=== PATIENT | female | born 2000 ===

== ENCOUNTER 2024-07-03 10:11 | Outpatient (AMB) | payer OTHER, SELFPAY ==
--- NOTE | 2024-07-03 10:18 | A.OFFVIS_ITS ---
Vital Signs 07/03/24 10:19 Height 5 ft 5 in Weight 167 lb 4 oz BMI 27.8 BP 118/62 Blood Pressure Location Lt brachial Position Sitting Pulse 76 Pulse Source Pulse Oximeter Pulse Oximetry (%) 98 Oxygen Delivery Method Room Air Intake Visit Reasons: RA Intake Note: Patient presents today for follow up on rheumatoid arthritis. She was last seen by Dr. Mariscal at [facility] on 07/19/22. Allergies Penicillins Allergy (Mild, Verified 07/03/24 10:22) pruritus, lip swelling HPI HPI RA: Details: She is doing well. Her last Simponi subcutaneous injection was 06/08/2024. She denies any joint swelling or stiffness. She feels like she forgets that she has arthritis sometimes. No recent infections. She continues to play basketball. She is establishing care at my practice at [facility]. She was a previous patient of mine at [facility]. [facility] Medical History (Updated 07/03/24 @ 12:55 by Carter Mariscal MD) Iron deficiency Vitamin D deficiency Hearing difficulty of both ears Eczema, dyshidrotic Juvenile idiopathic arthritis Surgical History (Updated 07/03/24 @ 10:24 by Brooklyn Baxter CMA) No pertinent past surgical history Social History (Updated 07/03/24 @ 08:52 by Brooklyn Baxter CMA) Household Members: Family Alcohol intake: never Patient Tobacco Use Status: Never used Tobacco Physical Exam Vital Signs: Last Vital Signs Pulse 76 07/03/24 10:19 BP 118/62 07/03/24 10:19 Pulse Ox 98 07/03/24 10:19 Oxygen Delivery Method Room Air 07/03/24 10:19 BMI result Body Mass Index 27.8 Const Other: General: Comfortable CVS: RRR Respiratory: clear to auscultation bilaterally. Good respiratory effort Skin: No lesions seen MSK: No tenderness of any joint. No synovitis. No dactylitis. Good range of motion of upper extremities and lower extremities. Assessment & Plan Assessment & Plan (1) Juvenile idiopathic arthritis: Comment: Controlled on Simponi subcutaneous injection monthly. She is overdue for her injection. History: Presenting with right recurrent dactylitis and TMJ arthritis. Failed Humira 11/2021-03/2022, she was on Simponi Aria 04/2022 but it was changed to subcutaneous injection as insurance covering infusion. Code(s): M08.80 - Other juvenile arthritis, unspecified site Category: Medical Plan: Labs for disease and drug monitoring on high-risk medication ordered Simponi 50 mg every 4 week subcutaneous injection prescription sent to [facility] pharmacy to process PA urgent request. In the past it was very difficult to control recurrent dactylitis failing NSAIDs, prednisone courses and intra- articular cortisone injections. Delay in initiation of treatment will result in disease flaring, unnecessary suffering and disability. Return to clinic in 3 months Requesting recent records from 2023 and MRI TMJ report from the past from [facility] Patient will call office if she starts to develop joint symptoms (2) Other bed bug exterminator (current) drug therapy: Code(s): Z79.899 - Other half-way (current) drug therapy Category: Medical Plan: See above Orders: Orders Creatinine Today Z79.60 - petroleum terminal plant operator (current) use of unspecified immunomodulators and immunosuppressants Erythrocyte Sedimentation Rate Today M08.80 - Other juvenile arthritis, unspecified site, Z79.899 - Other bed bug exterminator (current) drug therapy C Reactive Protein Today M08.80 - Other juvenile arthritis, unspecified site, Z79.899 - Other half-way (current) drug therapy Hepatitis B,C Profile Today M08.80 - Other juvenile arthritis, unspecified site, Z79.899 - Other bed bug exterminator (current) drug therapy Alanine Aminotransferase Today Z79.60 - [facility] (current) use of unspecified immunomodulators and immunosuppressants Aspartate Amino Transferase Today Z79.60 - petroleum terminal plant operator (current) use of unspecified immunomodulators and immunosuppressants Complete Blood Count Auto Diff Today Z79.60 - [facility] (current) use of unspecified immunomodulators and immunosuppressants T Spot TB Today M08.80 - Other juvenile arthritis, unspecified site, Z79.899 - Other half-way (current) drug therapy Medications: New golimumab (Simponi) PA needed. URGENT. Overdue. Continuity of treatment. 50 mg (0.5 mL) subcut Q4W 0.5 mL 2RF Coding Level of Care Code Est Pt Level 4 (03738) Complex EM visit Add On G2211 Diagnoses Juvenile idiopathic arthritis M08.80 Other bed bug exterminator (current) drug therapy Z79.899
[2024-07-03 10:19] VITALS: BP 118/62; PULSE 76; O2SAT 98; BMI 27.8
== END 2024-07-03 10:50 | disposition home or self-care (01) ==
PROVIDERS: Visit Provider Internal Medicine Rheumatology
DX: M08.80 Other juvenile arthritis, unspecified site (principal); Z79.899 Other long term (current) drug therapy
CPT/HCPCS: 99214

== ENCOUNTER 2024-07-03 10:11 | Outpatient (REF) | payer OTHER, SELFPAY ==
[2024-07-03 17:36] LABS: MANUAL DIFF FLAG NO
[2024-07-03 17:51] LABS: Basophils Percent Auto 0.2 % (0-2); Eosinophils Absolute Auto 0.2 X10*3/uL (0.0-0.4); Eosinophils Percent Auto 3.3 % (0-4); Hematocrit 38.3 % (37.0-47.0); Hemoglobin 12.2 g/dl (12.0-16.0); Imm Gran Abs Auto 0.01 X10*3/uL (0.00-0.03); Imm Gran Pct Auto 0.2 % (0.0-0.4); Lymphocytes Absolute Auto 1.7 X10*3/uL (1.2-4.9); Lymphocytes Percent Auto 37.9 % (20-40); Mean Corpuscular HGB Conc 31.9 g/dl (31.0-35.0); Mean Corpuscular Hemoglobin 25.8 pg (27.0-33.0); Mean Corpuscular Volume 81.1 fL (80.0-98.0); Mean Platelet Volume 11.2 fL (9.4-12.3); Monocytes Absolute Auto 0.3 X10*3/uL (0.1-1.2); Neutrophils Absolute Auto 2.3 x10*3/uL (2.0-8.3); Neutrophils Percent Auto 51.4 % (45-73); Platelet Count 274 X10*3/uL (160-400); Red Blood Count 4.72 X10*6/uL (4.20-5.50); Red Cell Distribution Width 14.4 % (11.0-16.0); White Blood Count 4.5 X10*3/uL (4.8-10.8)
[2024-07-03 17:57] LABS: Alanine Aminotransferase 22 U/L (0-31); Aspartate Amino Transferase 39 U/L (5-31); C Reactive Protein 0.37 mg/dL (< or = 0.50); Estimated Glomerular Filt Rate > 60
[2024-07-03 18:21] LABS: Erythrocyte Sedimentation Rate 20 MM/HR (0-20)
[2024-07-04 04:30] LABS: HBS Num1 0.83 mIU/mL (0-7.99); HBc Num1 0.16 S/CO (0.00-0.79); HBsAGNum1 0.36 S/CO (0.00-0.99); Hepatitis B Core Antibody Nonreactive (Nonreactive); Hepatitis B Surface Antigen Negative (Negative); ~HepC Num1 0.11 S/CO (0.00-0.79); ~Hepatitis B Surface Antibody NONREACTIVE (Nonreactive); ~Hepatitis C Antibody Nonreactive (Nonreactive)
[2024-07-06 19:59] LABS: TS Negative Control Passed; TS Panel A 0; TS Panel B 1; TS Positive Control Passed; TSpotTB Negative (Negative)
== END 2024-07-03 10:12 | disposition home or self-care (01) ==
LOC: HO.HKASLDS 10:11
PROVIDERS: Visit Provider Internal Medicine Rheumatology
DX: M08.80 Other juvenile arthritis, unspecified site (principal); Z79.899 Other long term (current) drug therapy; Z79.60 Long term (current) use of unspecified immunomodulators and immunosuppressants
CPT/HCPCS: 36415; 82565; 84450; 84460; 85025; 85652; 86140; 86481; 86704; 86706; 86803; 87340